=== PATIENT | female | born 1960 | race Caucasian/White ===

== ENCOUNTER → 2017-01-11 | Outpatient (CLI) | payer OTHER ==
[~2017-01-11] MED LIST: ACET-1600 PO; ALBU8.5H8 INH; ALPH200T2 PO; CETI10TA24 PO; CHOL10003 PO; GLUC1CAP48 PO; IBUP-1484 PO; OMEP-110 PO; RANI150T4 PO; [UNRECOGNIZED DRUG - OTHER] PO; [UNRECOGNIZED DRUG - OTHER] PO
[2017-01-11 12:49] LABS: HEMATOCRIT 39.5 % (34.6-47.8); HEMOGLOBIN 12.9 g/dL (11.7-16.4); WHITE BLOOD COUNT 7.4 x10^3/uL (3.4-10)
[2017-01-11 13:01] LABS: BLOOD UREA NITROGEN 17 mg/dL (7-18)
== END | disposition home or self-care (01) ==
LOC: STAR 11:26
PROVIDERS: ATTEND Orthopaedic Surgery Orthopaedic Surgery of the Spine
DX: Z01.818 Encounter for other preprocedural examination (principal); M47.26 Other spondylosis with radiculopathy, lumbar region; M48.061 Spinal stenosis, lumbar region without neurogenic claudication; J45.909 Unspecified asthma, uncomplicated; K21.9 Gastro-esophageal reflux disease without esophagitis
CPT/HCPCS: 36415; 71020; 80048; 81003; 85025; 87081; 87147; 93005

== ENCOUNTER 2017-01-28 09:02 | Inpatient (IN) | payer OTHER ==
[~2017-01-28] VITALS: Ht 152.4 cm; Wt 98.8 kg
[~2017-01-28 09:02] MED LIST changes: +BACITRACIN 50,000 UNIT ONE; +BUPIVACAINE/PF 0.5% ONE; +EPINEPHRINE 1 MG/ML, 1ML ONE; +THROMBIN 5,000 UNIT VIAL TP ONE; +TRANEXAMIC ACID 100 MG/ML, 10ML ONE; +VANCOMYCIN 1,000 MG ONE
[2017-01-28] MEDS ORDERED: LACTATED RINGERS 1,000 ML IV SCH (09:22)
[2017-01-28 09:27] VITALS: BP 135/84
[2017-01-28] MEDS ORDERED: METOCLOPRAMIDE 5 MG/ML, 2ML IV PRN (10:30)
[2017-01-28] MEDS ORDERED: HYDROcodone/APAP 7.5-325MG/15ML UDC PO PRN (10:30)
[2017-01-28] MEDS ORDERED: ONDANSETRON 2MG/ML, 2ML IVPush PRN ×2 (10:30→15:00)
[2017-01-28] MEDS ORDERED: ACETAMINOPHEN 325 MG TABLET PO PRN (10:30)
[2017-01-28] MEDS ORDERED: OXYcodone 5 MG/5 ML ORAL.SOL UDC PO PRN (10:30)
[2017-01-28] MEDS ORDERED: MIDAZOLAM 1 MG/ML, 2ML IV PRN (10:30)
[2017-01-28] MEDS ORDERED: EPHEDRINE 50 MG/ML, 1ML IVPush PRN (10:30)
[2017-01-28] MEDS ORDERED: KETOROLAC 30 MG/1 ML IV PRN (10:30)
[2017-01-28] MEDS ORDERED: morphine SULFATE 10 MG/ML, 1ML IV PRN (10:30)
[2017-01-28] MEDS ORDERED: MEPERIDINE/PF 25MG/0.5ML IVPush PRN (10:30)
[2017-01-28] MEDS ORDERED: ALBUTEROL SULFATE 2.5 MG/3 ML NPPB PRN (10:30)
[2017-01-28] MEDS ORDERED: LABETALOL 5MG/ML, 20ML IV PRN (10:30)
[2017-01-28] MEDS ORDERED: ROCURONIUM 10 MG/ML,10ML ONE ×2 (10:57→12:06)
[2017-01-28] MEDS ORDERED: PROPOFOL 10 MG/ML, 20ML ONE ×2 (10:57→12:06)
[2017-01-28] MEDS ORDERED: LIDOCAINE-MPF 2% ,5ML ONE (10:57)
[2017-01-28] MEDS ORDERED: DEXAMETHASONE 4 MG/ML, 1ML ONE ×2 (10:57→12:06)
[2017-01-28] MEDS ORDERED: FENTANYL PF 100 MCG/2ML ONE ×4 (10:57→15:08)
[2017-01-28] MEDS ORDERED: GLYCOPYRROLATE 0.2MG/1ML, 5ML ONE ×2 (10:57→12:06)
[2017-01-28] MEDS ORDERED: MIDAZOLAM 1 MG/ML, 2ML ONE ×3 (10:58→12:06)
[2017-01-28] MEDS ORDERED: BUPIVACAINE LIPOSOME/PF INFIL ONE (12:00)
[2017-01-28] MEDS ORDERED: CEFAZOLIN 1,000 MG ONE (12:06)
[2017-01-28] MEDS ORDERED: MIDAZOLAM 1 MG/ML, 5ML ONE (12:06)
[2017-01-28] MEDS ORDERED: SENNA/DOCUSATE TABLET PO PRN (15:00)
[2017-01-28] MEDS ORDERED: BISACODYL 10 MG SUPP PR PRN (15:00)
[2017-01-28] MEDS ORDERED: PROMETHAZINE 25 MG/ML, 1ML IM PRN (15:00)
[2017-01-28] MEDS ORDERED: OXYcodone/APAP 5/325MG TABLET PO PRN (15:00)
[2017-01-28] MEDS ORDERED: PHARMACY MAY ADJ FOR RENAL FX MC PRN (15:00)
[2017-01-28] MEDS ORDERED: DIPHENHYDRAMINE 50 MG CAPSULE PO PRN (15:00)
[2017-01-28] MEDS ORDERED: HYDROmorphone 2MG TABLET PO PRN (15:00)
[2017-01-28] MEDS ORDERED: MAGNESIUM HYDROXIDE 8%, 30ML UDC PO PRN (15:00)
[2017-01-28] MEDS ORDERED: DIAZEPAM 2 MG TABLET PO PRN (15:00)
[2017-01-28] MEDS ORDERED: HYDROmorphone 1 MG/ML, 1ML ONE (15:08)
[2017-01-28] MEDS: FENTANYL PF 100 MCG/2ML IV PRN ×2 (15:10→15:20)
[2017-01-28] MEDS: HYDROmorphone 1 MG/ML, 1ML IV PRN ×4 (15:15→16:55)
[2017-01-28] MEDS ORDERED: ONDANSETRON 2MG/ML, 2ML ONE (16:18)
[2017-01-28] MEDS ORDERED: PROMETHAZINE 25 MG/ML, 1ML ONE (16:55)
[2017-01-28] MEDS ORDERED: HYDROmorphone 2 MG/ML, 1ML ONE (16:55)
[2017-01-28] MEDS ORDERED: PROMETHAZINE 25 MG/ML, 1ML IV PRN (17:00)
[2017-01-28 19:55] VITALS: BP 123/82
[2017-01-28] MEDS ORDERED: MORPHINE SULFATE 4 MG/ML, 1ML IVPush PRN (20:00)
[2017-01-28] MEDS: CEFAZOLIN PMX 2GM/50ML 50 ML IV SCH (21:46)
[2017-01-28] MEDS ORDERED: morphine SULFATE 10 MG/ML, 1ML ONE (21:46)
[2017-01-28 23:32] VITALS: BP 126/84
[2017-01-29] MEDS ORDERED: morphine SULFATE 10 MG/ML, 1ML ONE (01:12)
[2017-01-29] MEDS ORDERED: MORPHINE SULFATE 4 MG/ML, 1ML IVPush PRN (01:30)
[2017-01-29 03:05] VITALS: BP 112/77
[2017-01-29 07:00] VITALS: BP 120/81
[2017-01-29] MEDS: CEFAZOLIN PMX 2GM/50ML 50 ML IV SCH (09:20)
[2017-01-29] MEDS ORDERED: OMEPRAZOLE 20 MG CAPSULE.DR PO SCH (11:30)
[2017-01-29] MEDS ORDERED: BUTALB/APAP/CAFFEINE 50MG/325MG/40MG PO PRN (11:30)
[2017-01-29 13:42] VITALS: BP 102/59
== END 2017-01-29 14:45 | disposition home or self-care (01) | DRG 460 ==
LOC: ORIP 09:02 → 4NOR 17:43
PROVIDERS: ADMIT Orthopaedic Surgery Orthopaedic Surgery of the Spine; ATTEND Orthopaedic Surgery Orthopaedic Surgery of the Spine
PROC: 4A11X4G Monitoring of Peripheral Nervous Electrical Activity, Intraoperative, External Approach (ICD-10-PCS; 2017-01-28)
PROC: 0SG00A0 Fusion of Lumbar Vertebral Joint with Interbody Fusion Device, Anterior Approach, Anterior Column, Open Approach (ICD-10-PCS; principal; 2017-01-28 12:00)
DX: M47.896 Other spondylosis, lumbar region (principal); J45.909 Unspecified asthma, uncomplicated; M48.061 Spinal stenosis, lumbar region without neurogenic claudication; M51.36 Other intervertebral disc degeneration, lumbar region; K21.9 Gastro-esophageal reflux disease without esophagitis; M06.9 Rheumatoid arthritis, unspecified; Z88.0 Allergy status to penicillin; Z91.040 Latex allergy status; Z90.49 Acquired absence of other specified parts of digestive tract
CPT/HCPCS: 72100; C9290; J0171; J0690; J1100; J1170; J2250; J2405; J2550; J2704; J3010; J3370; J3490; J7120

== ENCOUNTER 2019-03-29 10:00 | Outpatient (CLI) | payer OTHER ==
[~2019-03-29 10:00] MED LIST changes: -BACITRACIN 50,000 UNIT ONE; -BUPIVACAINE/PF 0.5% ONE; -CETI10TA24 PO; +CETI10TA26 PO; -EPINEPHRINE 1 MG/ML, 1ML ONE; -IBUP-1484 PO; +IBUP-1902 PO; -THROMBIN 5,000 UNIT VIAL TP ONE; -TRANEXAMIC ACID 100 MG/ML, 10ML ONE; -VANCOMYCIN 1,000 MG ONE
[2019-03-29] MEDS ORDERED: FAMO-79 PO (12:14)
[2019-03-29] MEDS ORDERED: OMEP40CA42 PO (12:14)
[2019-03-29] MEDS ORDERED: IBUP-1623 PO (12:16)
== END 2019-03-29 23:59 | disposition home or self-care (01) ==
LOC: STAR 10:00
PROVIDERS: ATTEND Orthopaedic Surgery
DX: Z02.9 Encounter for administrative examinations, unspecified (principal)

== ENCOUNTER 2019-04-03 11:59 | Day surgery (SDC) | payer OTHER ==
[~2019-04-03] VITALS: Ht 152.4 cm; Wt 97.0 kg
[~2019-04-03 11:59] MED LIST changes: +CEFAZOLIN 1,000 MG ONE; +DEXAMETHASONE 4 MG/ML, 1ML ONE; +FAMO-79 PO; +FENTANYL PF 100 MCG/2ML ONE; +IBUP-1623 PO; +MIDAZOLAM 1 MG/ML, 2ML ONE; +OMEP40CA42 PO; +ONDANSETRON 2MG/ML, 2ML ONE; +PROPOFOL 10 MG/ML, 20ML ONE; +ROPIvacaine/PF 0.5%, 30 ML ONE
[2019-04-03] MEDS ORDERED: LACTATED RINGERS 1,000 ML IV SCH (12:08)
[2019-04-03 12:21] VITALS: BP 159/86
[2019-04-03] MEDS ORDERED: ACETAMINOPHEN 500 MG TABLET PO ONE (12:30)
[2019-04-03] MEDS ORDERED: GABAPENTIN 300 MG CAPSULE PO ONE (12:30)
[2019-04-03] MEDS ORDERED: LIDOCAINE PF 2%, 5ML ONE (13:45)
[2019-04-03] MEDS ORDERED: CLINDAMYCIN 150 MG/ML, 6ML ONE (13:57)
[2019-04-03] MEDS ORDERED: OXYcodone 5 MG/5 ML ORAL.SOL UDC PO PRN (14:00)
[2019-04-03] MEDS ORDERED: ACETAMINOPHEN 325 MG TABLET PO PRN (14:00)
[2019-04-03] MEDS ORDERED: HYDROmorphone 2 MG/ML, 1ML IVPush PRN (14:00)
[2019-04-03] MEDS ORDERED: PROMETHAZINE 25 MG SUPP PR PRN (14:00)
[2019-04-03] MEDS ORDERED: ONDANSETRON 2MG/ML, 2ML IV PRN (14:00)
[2019-04-03] MEDS ORDERED: PROMETHAZINE 25 MG/ML, 1ML IV PRN (14:00)
[2019-04-03] MEDS ORDERED: ONDANSETRON ODT 8 MG PO PRN (14:00)
[2019-04-03] MEDS ORDERED: LORazepam 2 MG/ML, 1ML IVPush PRN (14:00)
[2019-04-03] MEDS ORDERED: ALBUTEROL SULFATE 2.5 MG/3 ML NPPB PRN (14:00)
[2019-04-03] MEDS ORDERED: FENTANYL PF 100 MCG/2ML ONE ×2 (14:06→14:36)
[2019-04-03] MEDS ORDERED: PROPOFOL 10 MG/ML, 20ML ONE (14:17)
[2019-04-03] MEDS ORDERED: CEFAZOLIN 1,000 MG ONE (14:17)
[2019-04-03] MEDS ORDERED: DEXAMETHASONE 4 MG/ML, 1ML ONE (14:17)
[2019-04-03] MEDS ORDERED: ONDANSETRON 2MG/ML, 2ML ONE ×2 (14:17→15:05)
[2019-04-03] MEDS ORDERED: OXYcodone 5 MG/5 ML ORAL.SOL UDC ONE (14:36)
[2019-04-03] MEDS: FENTANYL PF 100 MCG/2ML IV PRN ×3 (14:42→15:27)
== END 2019-04-03 18:40 | disposition home or self-care (01) ==
LOC: OUT 11:59
PROVIDERS: ATTEND Orthopaedic Surgery
DX: S83.282A Other tear of lateral meniscus, current injury, left knee, initial encounter (principal); S83.232A Complex tear of medial meniscus, current injury, left knee, initial encounter; M17.12 Unilateral primary osteoarthritis, left knee; F32.9 Major depressive disorder, single episode, unspecified; J45.909 Unspecified asthma, uncomplicated; Z79.1 Long term (current) use of non-steroidal anti-inflammatories (NSAID); Z79.899 Other long term (current) drug therapy; Z88.0 Allergy status to penicillin; Z91.040 Latex allergy status; X58.XXXA Exposure to other specified factors, initial encounter; Y93.89 Activity, other specified; Y92.89 Other specified places as the place of occurrence of the external cause; Y99.8 Other external cause status
CPT/HCPCS: 29880; J0690; J1100; J2250; J2405; J2704; J2795; J3010; J7120; Q0162